=== PATIENT | male | born 2000 | race African-American/Black ===

== ENCOUNTER 2024-01-14 09:38 | Emergency (ER) | payer OTHER ==
[~2024-01-14] VITALS: Ht 177.8 cm; Wt 72.6 kg
[2024-01-14 10:33] LABS: APPEARANCE,URINE CLOUDY (CLEAR); COLOR,URINE RED (YELLOW)
[2024-01-14 10:38] LABS: RBC,URINE TOO NUMEROUS TO COUN /HPF (0-2)
[2024-01-14 10:39] LABS: BACTERIA,URINE 1+ /HPF (None Seen); SQUAMOUS EPITHELIAL CELL,UR None Seen /HPF (None Seen)
[2024-01-14] MEDS ORDERED: CEFD300C3 PO (10:57)
[2024-01-14] MEDS ORDERED: IBUP-1955 PO (10:57)
[2024-01-14 11:07] VITALS: BP 123/67; TEMP 98.2; O2SAT 98
== END 2024-01-14 11:07 | disposition home or self-care (01) ==
LOC: ER 09:46
DX: N39.0 Urinary tract infection, site not specified (principal); R31.9 Hematuria, unspecified; R30.0 Dysuria
CPT/HCPCS: 81001